=== PATIENT | female | born 1980 ===

== ENCOUNTER 2019-12-05 10:17 | Inpatient (IN) | payer OTHER, MEDICAID ==
[2019-12-05] MEDS: Lactated Ringer's 1,000 ML IV SCH ×3 (10:00→22:05)
[2019-12-05 10:30] VITALS: BMI 31.7
[2019-12-05] MEDS ORDERED: CEFAZOLIN 2 GM in Premix Bag 1 BAG IVPB SCH (10:30)
[2019-12-05] MEDS ORDERED: Azithromycin 500 MG in Sodium Chloride 0.9% 250 ML 250 ML IVPB SCH (10:30)
[2019-12-05] MEDS ORDERED: hydrALAZINE 20 MG/ML VIAL SLOW IVP PRN ×2 (10:30→15:30)
[2019-12-05] MEDS ORDERED: Ondansetron PF 4 MG/2 ML Vial IVP PRN ×3 (10:30→15:30)
[2019-12-05] MEDS ORDERED: Promethazine HCl 25 MG/ML VIAL IM PRN ×3 (10:30→15:30)
[2019-12-05] MEDS ORDERED: Famotidine/PF 20 mg/2ml Vial SLOW IVP SCH (11:00)
[2019-12-05 11:05] LABS: Hemoglobin 13.2 g/dL (12.0-16.0); Mean Corpuscular HGB CONC 33.7 g/dL (32.0-36.0); Mean Corpuscular Hemoglobin 32.4 pg (27.0-31.0); Mean Corpuscular Volume 96.2 fL (78.0-98.0); Mean Platelet Volume 8.6 fL (7.4-10.4); Platelet Count 205 thou/uL (130-400); RBC Distribution Width 13.9 % (11.5-14.5); Red Blood Cell (RBC) Count 4.06 mill/uL (4.20-5.40); White Blood Cell (WBC) Count 9.7 thou/uL (4.8-10.8)
[2019-12-05 11:35] LABS: Syphilis Antibody Nonreactive (Nonreactive); Syphilis Antibody Index 0.05 S/CO (<1.00 Non-Reactive)
[2019-12-05 11:42] LABS: HBSAg Index 0.14 S/CO (0-0.99); Hep B Surf Ag Non-Reactive S/CO (NonReactive)
[2019-12-05] MEDS ORDERED: Fentanyl 100 MCG/2 ML VIAL ONE (11:42)
[2019-12-05] MEDS ORDERED: MORPHINE 5 MG/10 ML PF VIAL ONE (11:42)
[2019-12-05] MEDS ORDERED: Morphine 4 MG/ML VIAL ONE (11:42)
[2019-12-05] MEDS ORDERED: EPHEDRINE 25 MG/5 ML SYRINGE ONE (11:43)
[2019-12-05] MEDS ORDERED: Oxytocin 10 UNITS/ML VIAL ONE ×2 (11:43→13:07)
[2019-12-05] MEDS ORDERED: PHENYLEPHRINE-NS 100 MCG/ML 10 ML SYRINGE ONE (11:43)
[2019-12-05] MEDS ORDERED: Ondansetron PF 4 MG/2 ML Vial ONE (11:43)
[2019-12-05] MEDS ORDERED: Ketorolac Tromethamine 30 MG/ML VIAL ONE (11:43)
[2019-12-05] MEDS ORDERED: Methylergonovine 0.2 MG/ML VIAL ONE (12:31)
[2019-12-05] MEDS ORDERED: Promethazine HCl 25 MG SUPP PR PRN (13:06)
[2019-12-05] MEDS ORDERED: Naloxone HCl 0.4 mg/ml Vial IV PRN (13:06)
[2019-12-05] MEDS ORDERED: Naloxone HCl 0.4 mg/ml Vial IVP PRN ×2 (13:06)
[2019-12-05] MEDS ORDERED: diphenhydrAMINE 50 MG/ML VIAL IVP PRN (13:06)
[2019-12-05] MEDS ORDERED: Communication Order-Pharmacy FS SCH (13:15)
--- NOTE | 2019-12-05 14:03 | PDOC.OPDEL ---
OB Operative/Delivery Note Delivery Dr/Surgeon: Romulo/Selin/Porfirio Pre-Delivery Diagnosis: scheduled section Procedure/Post Delivery Dx: repeat low transverse CS (with vertical skin incision) Weeks gestation: 39 Anesthesia: spinal - Findings A Sex: male - 1 min: 9 - 5 min: 9 - Additional Findings/Plan Placenta delivered: manual removal findings: low transverse hysterotomy without extension, normal uterus, normal tubes Estimated blood loss: 665 Compilations/Other Findings: Procedure Note Date of Procedure: 12/05/19 Resident Surgeon: Yesi Attending Surgeon: Dr. Sebastian Procedure: Repeat vertical skin-incision, low transverse uterine caesarean section Preoperative Diagnosis: 1)Term intrauterine 2)Previous 3)A1GDM Postoperative Diagnosis: 1)same as above Anesthesia: spinal Indications: The patient is a 39 year old female at 39.0 weeks gestation who presented for a repeat scheduled . Procedure in Detail: After risks, benefits, and alternatives were explained to the patient, she gave informed consent. Pre-operative antibiotics included Cefazolin 2 gram IV and Azithromycin 500mg. The patient was taken to the operating room and spinal anesthesia was initiated. She was placed in the supine position with a left tilt and prepped and draped in usual sterile fashion. A vertical skin incision was made with a scalpel over the previous scar and carried down to the level of the fascia which was sharply nicked. The fascial cut was extended bilaterally cephalad and caudad with the scalpel. The rectus muscle was adhered to the fascial layer and dissected sharply with the fascia. The peritoneum was then entered bluntly and retracted manually. A Bladder blade was placed. A low transverse score was made with the scalpel and the uterus was entered in the midline with blunt dissection. Clear fluid was seen. The hysterotomy was extended manually. The was noted to be vertex and was easily delivered by fundal pressure. Mouth and nares were bulb suctioned. Cord clamped and cut and grossly normal male was handed to waiting nurse. Cord blood was obtained. Placenta was manually extracted, found to be intact with 3 vessel cord and discarded. The uterus was externalized and the endometrium was curetted with a dry lap. The uterus was noted to be boggy after uterine message and with moderate bleeding thus a single dose of IM methergine was given intra-op with improvement of uterine tone and increase hemostasis. The bladder blade was replaced and the uterus was closed with a running locking #1 Monocryl suture. One small area of bleeding was noted along the left hysterotomy incision and hemostatis was achieved with 2 figure-of- eight stitches using #0 vicryl. Following this hemostasis was noted. The abdomen was irrigated with saline and suctioned free of clots. The uterus was internalized and the hysterotomy was again noted to be hemostatic. The peritoneum was the closed with a running, non-locking 3-0 Vicryl. The fascia was closed with a running non-locking #0 PDS suture. The subcutaneous tissue was irrigated and small bleeders were coagulated with the bovie. The subcutuaneous layer was then closed with a running, non-locking 0-Vicryl. The skin was approximated with nessa and a pressure dressing was placed. All counts were correct. The patient tolerated the procedure well and was taken to the recovery room in stable condition. QBL: 665cc Complications: None Specimens: Cord blood sent to lab for blood type Findings: Grossly normal male infant with Apgars of 9 and 9. Grossly normal placenta with 3 vessel cord discarded. Post delivery plan: routine recovery
[2019-12-05] MEDS ORDERED: diphenhydrAMINE 25 MG CAP PO PRN (15:30)
[2019-12-05] MEDS ORDERED: Simethicone Chewable 80 MG TAB PO PRN (15:30)
[2019-12-05] MEDS ORDERED: NS / Oxytocin 40 units/1000ml 1,000 ML IV SCH (15:30)
[2019-12-05] MEDS ORDERED: Adacel (T-DAP) 0.5 ML SYRINGE IM ONE (15:30)
[2019-12-05] MEDS ORDERED: Lanolin Ointment 7 GM TUBE TOP PRN (15:30)
[2019-12-05] MEDS ORDERED: Bisacodyl 10 MG SUPP PR PRN (15:30)
[2019-12-05] MEDS ORDERED: Meperidine HCl/PF 25 MG/ML VIAL IM PRN (15:30)
[2019-12-05] MEDS ORDERED: Ketorolac Tromethamine 30 MG/ML VIAL IVP PRN (18:00)
[2019-12-05] MEDS: Ketorolac Tromethamine 30 MG/ML VIAL IVP SCH (19:07)
[2019-12-05] MEDS: Ferrous Sulfate 325 MG TAB PO SCH (21:31)
[2019-12-05] MEDS: Docusate Calcium (SURFAK) 240 MG CAP PO SCH (22:05)
[2019-12-06] MEDS: Ketorolac Tromethamine 30 MG/ML VIAL IVP SCH ×2 (00:05→05:35)
[2019-12-06] MEDS: HYDROcodone/Acetaminophen 5/325 mg Tablet PO PRN ×3 (04:37→16:34)
[2019-12-06 05:22] LABS: Hemoglobin 11.2 g/dL (12.0-16.0); Mean Corpuscular HGB CONC 35.3 g/dL (32.0-36.0); Mean Corpuscular Hemoglobin 33.8 pg (27.0-31.0); Mean Corpuscular Volume 95.9 fL (78.0-98.0); Mean Platelet Volume 8.4 fL (7.4-10.4); Platelet Count 188 thou/uL (130-400); RBC Distribution Width 13.6 % (11.5-14.5); Red Blood Cell (RBC) Count 3.32 mill/uL (4.20-5.40); White Blood Cell (WBC) Count 11.2 thou/uL (4.8-10.8)
[2019-12-06] MEDS: Docusate Calcium (SURFAK) 240 MG CAP PO SCH (08:45)
[2019-12-06] MEDS: Prenatal Vitamin 1 TAB PO SCH (08:45)
[2019-12-06] MEDS: Ferrous Sulfate 325 MG TAB PO SCH (08:49)
[2019-12-06] MEDS: Ibuprofen 800 MG TAB PO SCH (12:42)
[2019-12-07] MEDS: Ferrous Sulfate 325 MG TAB PO SCH ×2 (00:07→08:24)
[2019-12-07] MEDS: Docusate Calcium (SURFAK) 240 MG CAP PO SCH ×2 (00:07→08:24)
[2019-12-07] MEDS: Ibuprofen 800 MG TAB PO SCH ×3 (00:07→14:59)
[2019-12-07] MEDS: HYDROcodone/Acetaminophen 5/325 mg Tablet PO PRN ×2 (00:11→08:23)
[2019-12-07] MEDS: Prenatal Vitamin 1 TAB PO SCH (08:24)
[2019-12-07 12:19] VITALS: BP 89/47; TEMP 97.8
--- NOTE | 2019-12-08 05:32 | PQF ---
Anh Smallwood ROLAND R MD [id number] CLINICAL DOCUMENTATION CLARIFICATION FORM: POST DISCHARGE Addendum to original discharge summary date: ____ Late entry note date: __ DATE:12/08/2019 ATTN: Deshawn Sanchez Please exercise your independent, professional judgment in responding to the clarification form. Clinical indicators are provided on the bottom of this form for your review Please check appropriate box(s): [ ] Associated Diagnosis: Acute blood loss Anemia [ ] Abnormal laboratory findings not clinically significant [ ] Other diagnosis [ ] Unable to determine In addition, please specify: Present on Admission (POA): [ ] Yes [ ] No [ ] Unable to determine For continuity of documentation, please document condition throughout progress notes and discharge summary. Thank You. CLINICAL INDICATORS - SIGNS / SYMPTOMS/ LABS are present in the medical record: Vital signs 12/04 Temp 98.9, Pulse 73, Resp 20, BP 98/47 Laboratory 12/04 RBC 4.06, Hgb 13.2, hct 39.1 Laboratory 12/05 RBC 3.32, hgb 11.2, Hct 31.9 L&D notes p1 12/04 Estimated blood loss 665 ml RISK FACTORS L&D notes p1 12/04 Term 39 weeks gestation L&D notes p1 12/04 Previous CS L&D notes 12/04 A1GDM L&D notes 12/04 S/p Low transverse uterine CS TREATMENT Series of Hgb and Hct labs ordered 12/04AUG 11 IVF Lactated Ringer's 1L AUG 11 Ferrous Sulfate 325 Oral (This form is maintained as a part of the permanent medical record) 2014 [employer]. All Rights Reserved [email or web address]
== END 2019-12-07 16:05 | disposition home or self-care (01) | DRG 788 ==
LOC: L&D 10:17 → 3SW 17:11
PROVIDERS: ADMIT Family Medicine; ATTEND Family Medicine
PROC: 10D00Z1 Extraction of Products of Conception, Low, Open Approach (ICD-10-PCS; principal; 2019-12-05)
PROC: 3E0P05Z Introduction of Adhesion Barrier into Female Reproductive, Open Approach (ICD-10-PCS; 2019-12-05)
DX: O34.211 Maternal care for low transverse scar from previous cesarean delivery (principal); Z3A.39 39 weeks gestation of pregnancy; Z37.0 Single live birth; O24.429 Gestational diabetes mellitus in childbirth, unspecified control
CPT/HCPCS: 36415; 51702; 85027; 86780; 86850; 86900; 86901; 87340; J1885; J2210; J2270; J2274; J2405; J2590; J3010; Q0163; S0028